=== PATIENT | female | born 1995 | race Caucasian/White ===

== ENCOUNTER 2017-02-03 16:01 | Emergency (ER) | payer MEDICAID ==
[2017-02-03 16:19] VITALS: TEMP 98.1
--- NOTE | 2017-02-03 16:38 | RAD ---
EXAM DESCRIPTION: Ankle,Right 3 Views CLINICAL HISTORY: 21 years, Female, twisted yesterday COMPARISON: None. FINDINGS: No fracture or dislocation. Soft tissue swelling laterally. Small joint effusion. IMPRESSION: No fracture or dislocation. Soft tissue swelling laterally with small joint effusion Electronically signed by: Kunal Faria MD 02/03/2017 4:37 PM CDT
--- NOTE | 2017-02-03 16:54 | ED.PDOC ---
History of Present Illness - General Chief Complaint: Lower Extremity Injury Stated Complaint: right foot pain Time Seen by Provider: 02/03/17 16:17 Source: patient Exam Limitations: no limitations - History of Present Illness Initial Comments: the patient is a 21-year-old female presenting to the emergency room after having twisted her right ankle yesterday. She has significant swelling laterally and mild pain medially. She has twisted both ankles before. Fall was accidental. No other injuries. Timing/Duration: 24 hours Severity: moderate Improving Factors: immobilization Worsening Factors: movement Associated Symptoms: denies symptoms Allergies/Adverse Reactions: Allergies NO KNOWN ALLERGY Allergy (Verified 02/03/17 16:18) Home Medications: Ambulatory Orders Psqimaucqmcmi-Jcwt-Skbkfkvcge [Fioricet] 1 ea PO Q8H PRN #21 tab 02/03/17 Review of Systems - Review of Systems Review of Systems: 02/03/17 16:52 for comparison to baseline symptoms Constitutional: States: no symptoms reported EENTM: States: no symptoms reported Respiratory: States: no symptoms reported Cardiology: States: no symptoms reported Gastrointestinal/Abdominal: States: no symptoms reported Genitourinary: States: no symptoms reported Musculoskeletal: States: see HPI Skin: States: no symptoms reported Neurological: States: no symptoms reported Endocrine: States: no symptoms reported All other Systems: No Change from Baseline Past Medical History (General) - Patient Medical History Surgical History: other - Vaccination History Hx Influenza Vaccination: Yes Hx Pneumococcal Vaccination: No - Social History Hx Tobacco Use: No Hx Alcohol Use: No Hx Substance Use: No Hx Substance Use Treatment: No Hx Depression: No - Activities of Daily Living Hospice Agency (if applicable):: None - Female History Patient is a Female of Child Bearing Age (10 -59 yrs old): Yes Patient : No - Triage Comment ED Triage Comment: implanon control Family Medical History - Family History Mother Family History: Unknown Physical Exam - Physical Exam General Appearance: Alert, Comfortable, No apparent distress Eye Exam: bilateral normal Ears, Nose, Throat: normal pharynx Neck: full range of motion, supple Respiratory: no respiratory distress, no accessory muscle use Cardiovascular/Chest: normal peripheral pulses, regular rate, rhythm, no edema Peripheral Pulses: radial,right: 2+, radial,left: 2+, dorsalis pedis,right: 2+, dorsalis pedis,left: 2+, posterior tibialis,right: 2+, posterior tibialis,left: 2+ Extremity: no calf tenderness, normal capillary refill, swelling, other - see history of present illness. Talotibial joint appears intact Neurologic: alert, normal mood/affect, oriented x 3 Skin Exam: normal color Comments: Vital Signs - 24 hr 02/03/17 16:10 Temperature 98.1 F Pulse Rate [ 93 H pulse ox] Respiratory 20 Rate Blood Pressure 162/109 [Left Arm] O2 Sat by Pulse 97 Oximetry Progress - Progress Progress: 02/03/17 16:54 the patient is a 21-year-old female presenting to the emergency room secondary to a twisted ankle on the right. This appears to be a strain. There are no fracture seen on x-ray of the ankle. No dislocation. Motrin can be used for discomfort. She will also be written for Fioricet for as needed use. A walking boot is placed today. She needs to be reevaluated in 2 weeks with her primary care doctor. ER warnings were given for any acute worsening. Departure - Departure Clinical Impression: Sprain of right ankle or foot Disposition: Discharge to Home or Self Care Condition: Fair Departure Forms: ED Discharge - Pt. Copy, Patient Portal Self Enrollment Instructions: DI for Ankle Sprain Diet: regular diet Activity: increase activity as tolerated Prescriptions: Sopkblrmezlky-Iukd-Anmvcrsaez [Fioricet] 1 ea PO Q8H PRN #21 tab PRN Reason: Pain Home Medications: Ambulatory Orders Pqrhqeyrlgbtg-Ltky-Uxtxexzolb [Fioricet] 1 ea PO Q8H PRN #21 tab 02/03/17 Additional Instructions: the patient is a 21-year-old female presenting to the emergency room secondary to a twisted ankle on the right. This appears to be a strain. There are no fracture seen on x-ray of the ankle. No dislocation. Motrin can be used for discomfort. She will also be written for Fioricet for as needed use. A walking boot is placed today. She needs to be reevaluated in 2 weeks with her primary care doctor. ER warnings were given for any acute worsening.
[2017-02-03 17:24] VITALS: BP 158/104; O2SAT 99
== END 2017-02-03 17:24 | disposition home or self-care (01) ==
LOC: ER 16:01
DX: S93.401A Sprain of unspecified ligament of right ankle, initial encounter (principal); X50.1XXA Overexertion from prolonged static or awkward postures, initial encounter; Y92.9 Unspecified place or not applicable

== ENCOUNTER 2017-03-19 21:30 | Emergency (ER) | payer MEDICAID ==
[2017-03-19] MEDS ORDERED: AZITHROMYCIN 250 MG TAB PO ONE (22:38)
--- NOTE | 2017-03-19 22:41 | ED.PDOC ---
History of Present Illness - General Chief Complaint: Abdominal Pain Stated Complaint: Lower abdominal pain Time Seen by Provider: 03/19/17 22:25 Source: patient Exam Limitations: no limitations - History of Present Illness Initial Comments: Patient presents with bilateral lower abdominal pain for several months. She just stopped a 7 day course of doxycycline at the 6th day because she said her pain was getting worse. She has had no vaginal discharge and no dysuria nor hematuria. No fever. LMP one month ago. Has subq control kya. No other complaints. Timing/Duration: changing over time Severity: mild Improving Factors: nothing Worsening Factors: nothing Associated Symptoms: denies symptoms Allergies/Adverse Reactions: Allergies NO KNOWN ALLERGY Allergy (Verified 02/03/17 16:18) Home Medications: Ambulatory Orders Uxshekldugaqq-Smcf-Pxzmbnwxul [Fioricet] 1 ea PO Q8H PRN #21 tab 02/03/17 Azithromycin 250 mg PO DAILY #7 tab 03/19/17 Review of Systems - Review of Systems Constitutional: States: no symptoms reported EENTM: States: no symptoms reported Respiratory: States: no symptoms reported Gastrointestinal/Abdominal: States: see HPI Genitourinary: States: no symptoms reported Musculoskeletal: States: no symptoms reported Skin: States: no symptoms reported Neurological: States: no symptoms reported Endocrine: States: no symptoms reported Hematologic/Lymphatic: States: no symptoms reported Past Medical History (General) - Patient Medical History Hx Seizures: No Hx Stroke: No Hx Dementia: No Hx Asthma: No Hx of COPD: No Hx Cardiac Disorders: No Hx Congestive Heart Failure: No Hx Pacemaker: No Hx Hypertension: No Hx Thyroid Disease: No Hx Diabetes: No Hx Gastroesophageal Reflux: No Hx Renal Disease: No Hx Cancer: No Hx of HIV: No Hx Hepatitis C: No Hx MRSA: No Surgical History: other - Vaccination History Hx Tetanus, Diphtheria Vaccination: Yes Hx Influenza Vaccination: Yes Hx Pneumococcal Vaccination: No Immunizations Up to Date: Yes - Social History Hx Tobacco Use: No Hx Alcohol Use: No Hx Substance Use: No Hx Substance Use Treatment: No Hx Depression: No - Female History Patient is a Female of Child Bearing Age (10 -59 yrs old): Yes Patient : No Family Medical History - Family History Mother Family History: Unknown Physical Exam - Physical Exam General Appearance: Alert Respiratory: lungs clear Cardiovascular/Chest: normal peripheral pulses, regular rate, rhythm Gastrointestinal/Abdominal: normal bowel sounds, non tender, soft Progress - Progress Progress: 03/19/17 22:42 Ceftriaxone 250 mg IM x one and Azithromycin 500 mg po x one. Departure - Departure Clinical Impression: Pelvic infection in female Disposition: Discharge to Home or Self Care Condition: Good Departure Forms: ED Discharge - Pt. Copy, Patient Portal Self Enrollment Instructions: DI for Abdominal Pain-Adult Diet: resume usual diet Activity: increase activity as tolerated Referrals: Ministerio Robertson MD [Primary Care Provider] - 1-2 Weeks Prescriptions: Azithromycin 250 mg PO DAILY #7 tab Home Medications: Ambulatory Orders Rciyoupbcrpcl-Cjel-Zjrflbsdfq [Fioricet] 1 ea PO Q8H PRN #21 tab 02/03/17 Azithromycin 250 mg PO DAILY #7 tab 03/19/17 Additional Instructions: Follow up with Dr. Hyde on wednesday.
[2017-03-19] MEDS ORDERED: LIDOCAINE 1% 10 ML VIAL INJ ONE (22:47)
[2017-03-19 23:13] VITALS: BP 139/58; TEMP 98.4; O2SAT 99
== END 2017-03-19 23:13 | disposition home or self-care (01) ==
LOC: ER 21:30
DX: N73.9 Female pelvic inflammatory disease, unspecified (principal)
CPT/HCPCS: 81001; 81025; J0696; Q0144

== ENCOUNTER → 2017-08-24 | Emergency (ER) | payer MEDICAID, OTHER | LOC: ER 20:15 | DX: Z53.21 Procedure and treatment not carried out due to patient leaving prior to being seen by health care provider (principal) ==

== ENCOUNTER → 2017-10-08 | Outpatient (CLI) | payer OTHER ==
--- NOTE | 2017-10-09 19:31 | RAD ---
Procedure: XR LUMBAR SPINE 2-3 VIEWS Exam Date: 10/08/2017 12:00 AM CAT SCAN TECH Ordering Provider: ART Shen Clinical Indication: BACK PAIN Comparison: None Findings: There is no acute fracture or subluxation. Vertebral body heights are maintained. No significant degenerative disc changes or facet arthropathy. There is no appreciable scoliosis. There are no lytic or sclerotic lesions. The sacroiliac joints are normal. Impression: 1. Negative Three-view exam of the lumbar spine. Electronically signed by: Marques Lyon MD 10/09/2017 7:30 PM CAT SCAN TECH
--- NOTE | 2017-10-09 19:31 | RAD ---
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 No significant degenerative changes. Visualized portions of the hemipelvis are normal. There is no lytic or sclerotic lesion. No suspicious calcifications. Impression: 1. Negative exam of the bilateral hips. Electronically signed by: Marques Lyon MD 10/09/2017 7:30 PM JUNIOR NETWORK ADMINISTRATOR
== END ==
LOC: RAD 15:21
PROVIDERS: ATTEND Nurse Practitioner Family
DX: M54.5 Low back pain (principal); M25.551 Pain in right hip; M25.552 Pain in left hip